=== PATIENT | female | born 1995 | race Caucasian/White ===

== ENCOUNTER 2019-07-24 05:55 | Inpatient (IN) | payer OTHER ==
[2019-07-24] MEDS ORDERED: CARBOPROST TROMETHAMINE 250 MCG/ML 1 ML AMP IM PRN (06:06)
[2019-07-24] MEDS ORDERED: LIDOCAINE 0.5% (PF) 5 MG/ML (50 ML SDV) SQ PRN (06:06)
[2019-07-24] MEDS ORDERED: METHYLERGONOVINE 0.2 MG/ML 1 ML AMP IM PRN (06:06)
[2019-07-24] MEDS ORDERED: OXYTOCIN 10 UNIT/ML 1 ML VIAL IM PRN (06:06)
[2019-07-24] MEDS ORDERED: TERBUTALINE 1 MG/ML VIAL SQ PRN (06:06)
[2019-07-24] MEDS: LACTATED RINGERS 1,000 ML IV SCH ×4 (06:20→23:44)
[2019-07-24 06:31] LABS: Basophils % (A) 0 %; Eosinophils # (A) 0.1 k/uL (0-0.7); Eosinophils % (A) 1 %; HCT 37.3 % (34.0-46.0); HGB 12.8 gm/dL (11.4-16.0); Lymphocytes # (A) 1.6 k/uL (1.0-4.8); Lymphocytes % (A) 20 %; MCH 32.7 pg (25.0-35.0); MCHC 34.2 g/dL (31.0-37.0); MCV 95.6 fL (80.0-100.0); Mean Platelet Volume 8.4; Monocytes # (A) 0.5 k/uL (0-1.0); Monocytes % (A) 6 %; Neutrophils # (A) 5.5 k/uL (1.3-7.7); Neutrophils % (A) 70 %; Platelet Count 214 k/uL (150-450); RDW 13.2 % (11.5-15.5); WBC 7.9 k/uL (3.8-10.6)
[2019-07-24] MEDS: OXYTOCIN 30 UNITS/500 ML NS 30 UNIT in SALINE 1 500ML.BAG IV SCH (06:50)
[2019-07-24] MEDS ORDERED: CITRIC ACID-SODIUM CITRATE 15 ML CUP PO ONE (17:22)
[2019-07-24] MEDS ORDERED: OXYTOCIN 10 UNIT/ML 1 ML VIAL ONE (18:04)
[2019-07-24] MEDS ORDERED: NALBUPHINE 10 MG/ML (1 ML AMP) ONE (18:04)
[2019-07-24] MEDS ORDERED: ONDANSETRON 4 MG/2 ML VIAL ONE (18:04)
[2019-07-24] MEDS ORDERED: MORPHINE SULFATE (PF) 0.3 MG/0.3 ML SYR ONE (18:04)
[2019-07-24] MEDS ORDERED: KETOROLAC 30 MG/ML 1 ML VIAL ONE (18:04)
[2019-07-24] MEDS ORDERED: ONDANSETRON 4 MG/2 ML VIAL IVP PRN (18:50)
[2019-07-24] MEDS ORDERED: METOCLOPRAMIDE 5 MG/ML 2 ML VIAL IVP PRN (18:50)
[2019-07-24] MEDS ORDERED: ACETAMINOPHEN IV (For NPO) 1,000 MG in EMPTY BAG 1 BAG IVPB ONE (18:50)
[2019-07-24] MEDS ORDERED: diphenhydrAMINE 50 MG CAP PO PRN (18:50)
[2019-07-24] MEDS ORDERED: HYDROcodone/APAP 5-325MG 1 EACH TAB PO PRN (18:50)
[2019-07-24] MEDS ORDERED: diphenhydrAMINE 50 MG/ML 1 ML VIAL IVP PRN ×2 (18:50)
[2019-07-24] MEDS ORDERED: diphenhydrAMINE 25 MG CAP PO PRN (18:50)
[2019-07-24] MEDS ORDERED: NALOXONE 0.4 MG/ML 1 ML VIAL IV PRN (18:50)
[2019-07-24] MEDS ORDERED: ZOLPIDEM 5 MG TAB PO PRN (18:50)
--- NOTE | 2019-07-24 18:50 | P.HPOB ---
History of Present Illness H&P Date: 07/24/19 Chief Complaint: IUP at 38 and 4/sevenths weeks, LGA, h/o VAVD, and brachial plexus injury This is a pleasant 24-year-old 2 para 1001 at 38-4/7 weeks that presents to labor and delivery for induction of labor secondary to LGA, ultrasound done yesterday revealing weight of 9 lbs. 9 oz. greater than the 90 percentile. Patient has a history of a LGA 9 lbs. 11 oz. with her prior delivery which necessitated a vacuum-assisted vaginal delivery for field tachycardia at the time of delivery, and subsequent shoulder dystocia. Infant did sustain a brachial plexus injury which was noted to resolve over time. Patient is very concerned about weight therefore we are inducing early given this ultrasound finding of LGA. Patient has had routine care with myself and it has been uncomplicated. Given her history we have watched growth closely. On this date she notes good movement she denies vaginal bleeding or loss of fluid. On blood work she has a blood type of O+, rubella immune, hepatitis B surface antigen negative, HIV negative, RPR nonreactive, GBS negative. Review of Systems Constitutional: Denies chills, Denies fatigue, Denies fever Ears, nose, mouth and throat: Denies headache Cardiovascular: Reports leg edema Respiratory: Denies dyspnea Gastrointestinal: Denies nausea, Denies vomiting Genitourinary: Reports Past Medical History Past Medical History: No Reported History History of Any Multi-Drug Resistant Organisms: None Reported Past Surgical History: Adenoidectomy, Tonsillectomy Past Anesthesia/Blood Transfusion Reactions: No Reported Reaction Past Psychological History: No Psychological Hx Reported Smoking Status: Never smoker Past Alcohol Use History: None Reported Past Drug Use History: None Reported - Past Family History Mother Family Medical History: No Reported History Medications and Allergies Home Medications Medication Instructions Recorded Confirmed Type Pnv No.95/Ferrous Fum/Folic AC 1 tab PO DAILY 07/24/19 07/24/19 History [ Multivitamin Tablet] Allergies Allergy/AdvReac Type Severity Reaction Status Date / Time No Known Allergies Allergy Verified 07/24/19 06:05 Exam Osteopathic Statement: *. No significant issues noted on an osteopathic structural exam other than those noted in the History and Physical/Consult. Vital Signs Temp Pulse Resp BP Pulse Ox 07/24/19 06:04 98.3 F 107 H 16 130/73 98 Intake and Output 07/23/19 07/24/19 07/24/19 22:59 06:59 14:59 Other: Weight 83.915 kg Targeted physical exam is performed on this date in general this is a well- nourished well-developed female in no acute distress, breathing is noted to be nonlabored heart has a regular rate and rhythm her abdomen is gravid, on physical exam her cervix is noted to be 1-2/50/-3 amniotomy is performed and clear fluid was obtained. heart tones noted to be category 1 and she is marcial irregularly. Results Result Diagrams: 07/24/19 06:17 Assessment and Plan (1) Term Current Visit: Yes Status: Acute Code(s): Z34.90 - ENCNTR FOR SUPRVSN OF NORMAL , UNSP, UNSP TRIMESTER SNOMED Code(s): 55062808 (2) H/O delivery by vacuum extraction, currently Current Visit: Yes Status: Acute Code(s): O09.299 - SUPRVSN OF PREG W POOR REPRODCTV OR OBSTET HISTORY, UNSP TRI SNOMED Code(s): 584974515 (3) LGA (large for gestational age) fetus Current Visit: Yes Status: Acute Code(s): LPG1020 - SNOMED Code(s): 020814929 Plan: Given this patient's history of vacuum assist vaginal delivery with shoulder dystocia, and subsequent brachial plexus injury of her infant decision was made to proceed with induction today. Patient was counseled on reason for induction and she was well aware that given size we will be watching closely and any deviation from the labor curve we will recommend primary . Patient w ishes to avoid adamantly. Patient does desire epidural at some point during labor process therefore anesthesia will be notified, we'll monitor this patient closely for progress in hopes for vaginal delivery.
[2019-07-24] MEDS ORDERED: IBUPROFEN IV 800 MG in SODIUM CHLORIDE 0.9% 250 ML IV ONE (18:52)
[2019-07-24] MEDS ORDERED: OXYTOCIN 20 UNITS/1000 ML NS 1,000 ML IV SCH (19:00)
--- NOTE | 2019-07-24 19:00 | P.OP ---
Date of Procedure: 07/24/19 Preoperative Diagnosis: IUP @ 38 4/7 weeks, arrest of descent, h/o LGA, shoulder dystocia with brachial plexus injury Postoperative Diagnosis: same Procedure(s) Performed: Primary low transverse section Anesthesia: spinal Surgeon: Charlee Smith [employer]er #1: Henry Pitt Estimated Blood Loss (ml): 600 IV fluids (ml): 1,000 Urine output (ml): 200 Pathology: none sent Condition: stable Disposition: PACU Indications for Procedure: This pleasant 24-year-old 2 para 1001 at 38-4/7 weeks presents for induction of labor secondary to history of LGA, shoulder dystocia with regular plexus injury. Ultrasound done yesterday revealing an infant of 9 lbs. 9 oz. prior infant 911. Patient made minimal progress throughout the day this morning at 8:30 she was noted to be 1-2 cm by 5 PM she had only dilated to 3 cm and the was still high in the pelvis. Given her prior history was discussed with the patient a primary given lack of cervical change, and lack of descent into the pelvis. Patient stated understanding and consented for primary . Operative Findings: Normal uterus tubes and ovaries were appreciated female delivered at 1823, weight of 9 lbs. 3 oz. with Apgars of 9 and 9 at one and 5 minutes respectively Description of Procedure: Patient was taken back to the operating suite where spinal anesthesia was found be adequate by the anesthesia . She was prepped and draped in normal sterile fashion in the dorsal supine position. A Pfannenstiel skin incision was made with the scalpel and carried through to the underlying layer of fascia. The fascia was then incised in the midline and extended laterally. The superior aspect the fascial incision was then grasped the Mckenzie clamps, elevated and underlying rectus muscles dissected off sharply. It was then turned the patient's inferior aspect of the fascial incision which was grasped mckenzie clamps, elevated and underlying rectus muscles dissected off sharply once again. The rectus muscles were in the midline the peritoneum was identified and entered. This incision was then extended superiorly and inferiorly with good visualization the bladder. The bladder blade was then inserted the vesicouterine peritoneum was identified and the bladder flap was created using sharp and blunt dissection. Hysterotomy incision was then made to enter the uterus the infant's head was encountered and the infant was delivered atraumatically and the umbilical cord was doubly clamped and cut. the placenta was delivered manually and the Uterus was then delivered from the abdomen and cleared of all clots and debris. The hysterotomy incision was closed with 0 Vicryl in a running locked fashion 2. Small amount of bleeding was noted in the midportion of the hysterotomy incision therefore a [id number] suture was used to obtain hemostasis. On inspection of the hysterotomy incision hemostasis was appreciated and the uterus was returned to the abdomen. The gutters were cleared of all clots and debris. Once again the hysterotomy incision was inspected and hemostasis was appreciated. The fascial incision was closed 0 Vicryl in a running fashion from one lateral edge the other. The subcu tissue was irrigated and reapproximated with 3-0 Vicryl. The skin was then closed with 4-0 Vicryl in a subarticular fashion. Steri-Strips and sterile dressings were applied as needed. All counts were correct 2 patient tolerated procedure well
[2019-07-24 19:25] VITALS: RESP 16
[2019-07-24] MEDS: SENNOSIDES-DOCUSATE SODIUM 1 EACH TAB PO SCH (19:52)
--- NOTE | 2019-07-25 07:08 | P.PN ---
Progress Note - Text 07/25 636am 24-year-old female status post with a spinal anesthetic with Duramorph. Patient seen and evaluated for postop pain control this morning, patient has a VAS of 0, she has complains of pruritus which is getting better. Patient to follow-up with OB doctor for oral pain medication
--- NOTE | 2019-07-25 08:07 | P.PNOBGPC ---
Subjective - Subjective Principal diagnosis: POD 1 LTCS Interval history: Patient did well overnight. She states her pain is controlled. She is ambulating without difficulty. Toth was removed at 4 AM and we are awaiting spontaneous void. No nausea or vomiting tolerating clear liquids desirous of a regular diet. Patient reports: Reports appetite normal, Reports pain well controlled, Reports ambulating normally [place]: doing well, nursing well Objective - Vital Signs Latest vital signs: Vital Signs Temp Pulse Resp BP Pulse Ox 07/25/19 04:00 98.3 F 80 16 95/61 98 07/25/19 00:00 96.9 F L 87 16 95/57 98 07/24/19 20:57 96.3 F L 76 16 101/63 97 07/24/19 20:27 83 16 103/64 99 07/24/19 19:57 81 16 93/56 98 07/24/19 19:42 98.1 F 73 16 96/57 97 07/24/19 19:06 78 16 105/53 98 07/24/19 18:50 96.9 F L 82 18 105/58 98 Intake and Output 07/24/19 07/25/19 07/25/19 22:59 06:59 14:59 Output Total 600 400 Balance -600 -400 Output: Urine 600 400 Uretheral (Toth) 250 Other: Voiding Method Indwelling Catheter - Exam Extremities: Present: normal, edema Abdomen: Present: normal appearance, soft Incision: Present: normal, dry, intact Uterus: Present: normal, firm Assessment and Plan (1) Term Current Visit: Yes Status: Acute Code(s): Z34.90 - ENCNTR FOR SUPRVSN OF NORMAL , UNSP, UNSP TRIMESTER SNOMED Code(s): 12007073 (2) H/O delivery by vacuum extraction, currently Current Visit: Yes Status: Acute Code(s): O09.299 - SUPRVSN OF PREG W POOR REPRODCTV OR OBSTET HISTORY, UNSP TRI SNOMED Code(s): 807836923 (3) LGA (large for gestational age) fetus Current Visit: Yes Status: Acute Code(s): DGL6542 - SNOMED Code(s): 555788754 (4) S/P section Current Visit: Yes Status: Acute Code(s): Z98.891 - HISTORY OF UTERINE SCAR FROM PREVIOUS SURGERY SNOMED Code(s): 969680006 Plan: Patient is doing well postoperatively, awaiting spontaneous void. We'll advance diet to regular. Plan continue postoperative care. Anticipate discharge home tomorrow.
[2019-07-25 08:16] LABS: Basophils % (A) 0 %; Eosinophils # (A) 0.1 k/uL (0-0.7); Eosinophils % (A) 1 %; HCT 29.8 % (34.0-46.0); HGB 10.1 gm/dL (11.4-16.0); Lymphocytes # (A) 1.8 k/uL (1.0-4.8); Lymphocytes % (A) 18 %; MCH 32.9 pg (25.0-35.0); MCHC 33.9 g/dL (31.0-37.0); MCV 96.9 fL (80.0-100.0); Mean Platelet Volume 8.8; Monocytes # (A) 0.8 k/uL (0-1.0); Monocytes % (A) 8 %; Neutrophils # (A) 7.3 k/uL (1.3-7.7); Neutrophils % (A) 72 %; Platelet Count 226 k/uL (150-450); RBC 3.07 m/uL (3.80-5.40); RDW 13.4 % (11.5-15.5); WBC 10.1 k/uL (3.8-10.6)
[2019-07-25] MEDS ORDERED: PRENATAL VIT-IRON-FOLIC ACID 1 EACH CAP PO SCH (09:00)
[2019-07-25] MEDS: SENNOSIDES-DOCUSATE SODIUM 1 EACH TAB PO SCH ×2 (09:53→20:19)
[2019-07-25] MEDS: IBUPROFEN 600 MG TAB PO PRN ×2 (12:06→18:02)
[2019-07-25] MEDS: ACETAMINOPHEN TAB 325 MG TAB PO PRN (20:19)
[2019-07-25] MEDS: LACTATED RINGERS 1,000 ML IV SCH ×3 (21:41→21:46)
[2019-07-25] MEDS: OXYTOCIN 30 UNITS/500 ML NS 30 UNIT in SALINE 1 500ML.BAG IV SCH (21:47)
[2019-07-25] MEDS: SIMETHICONE 80 MG CHEWABLE PO PRN (22:33)
[2019-07-26] MEDS: IBUPROFEN 600 MG TAB PO PRN ×2 (00:46→06:32)
[2019-07-26] MEDS: SENNOSIDES-DOCUSATE SODIUM 1 EACH TAB PO SCH (07:51)
[2019-07-26] MEDS: SIMETHICONE 80 MG CHEWABLE PO PRN (07:51)
[2019-07-26] MEDS: ACETAMINOPHEN TAB 325 MG TAB PO PRN (07:52)
[2019-07-26 08:47] VITALS: BP 99/70; PULSE 91; TEMP 98.3
--- NOTE | 2019-07-26 09:01 | P.DS ---
Providers Date of admission: 07/24/19 05:55 Expected date of discharge: 07/26/19 Attending physician: Charlee Smith Primary care physician: Stated None - Discharge Diagnosis(es) (1) Term Current Visit: Yes Status: Acute (2) H/O delivery by vacuum extraction, currently Current Visit: Yes Status: Acute (3) LGA (large for gestational age) fetus Current Visit: Yes Status: Acute (4) S/P section Current Visit: Yes Status: Acute Hospital Course: this is a pleasant 24-year-old 2 para 1001 that presented to labor and delivery at 38-4/7 weeks for induction of labor secondary history of LGA, 9-11 # with susequent shoulder dystocia with brachial plexus injury. Ultrasound done the day prior revealed a 9-9 estimated weight. Patient was admitted to labor and delivery and Pitocin was started per hospital protocol. Patient was noted to be 1-2 cm on admission. Amniotomy was performed once regular contractions were noted. Clear fluid was obtained on amniotomy. Patient made minimal progress through labor and a proximally 10 hours later was noted to be 3 cm. Patient was given the option of primary versus continuing on. Given her prior history of shoulder dystocia and brachial plexus injury she opted for primary . was completed without difficulty for further details on the please see the operative report. Patient delivered a 9 lbs. 3 oz. girl with Apgars of 9 and 9 at one and 5 minutes respectively. patient's postoperative course has been uneventful. On this postop day #2 she is ambulating and voiding without difficulty. Her pain is well-controlled with Motrin/Tylenol. She is breast-feeding without difficulty. Her lochia is minimal. She is complaining of some gas distention, and is using simethicone and senna S. girl is doing well and should be discharged today as well. Patient Condition at Discharge: Good Plan - Discharge Summary New Discharge Prescriptions: No Action Pnv No.95/Ferrous Fum/Folic AC [ Multivitamin Tablet] 1 tab PO DAILY Discharge Medication List Pnv No.95/Ferrous Fum/Folic AC [ Multivitamin Tablet] 1 tab PO DAILY 07/24/19 [History] Follow up Appointment(s)/Referral(s): Charlee Simth DO [Doctor of Osteopathic Medicine] - 2 Weeks Patient Instructions/Handouts: (DC), (GEN) Activity/Diet/Wound Care/Special Instructions: patient is to alternate Motrin 600 [id number] every 6 hours with Tylenol. She is also to use simethicone as needed, and is encouraged to use senna S, 2 pills at bedtime in addition. Discharge Disposition: HOME SELF-CARE
== END 2019-07-26 11:07 | disposition home or self-care (01) | DRG 788 ==
LOC: 4FBP 05:55
PROVIDERS: ADMIT Obstetrics & Gynecology Obstetrics; ATTEND Obstetrics & Gynecology Obstetrics
PROC: 10907ZC Drainage of Amniotic Fluid, Therapeutic from Products of Conception, Via Natural or Artificial Opening (ICD-10-PCS; principal; 2019-07-24 18:15)
PROC: 3E033VJ Introduction of Other Hormone into Peripheral Vein, Percutaneous Approach (ICD-10-PCS; principal; 2019-07-24 18:15)
PROC: 10D00Z1 Extraction of Products of Conception, Low, Open Approach (ICD-10-PCS; principal; 2019-07-24 18:15)
DX: O36.63X0 Maternal care for excessive fetal growth, third trimester, not applicable or unspecified (principal); Z37.0 Single live birth; Z3A.38 38 weeks gestation of pregnancy; O32.4XX0 Maternal care for high head at term, not applicable or unspecified
CPT/HCPCS: 85025; 86850; 86900; 86901

== ENCOUNTER 2021-08-11 11:52 | Emergency (ER) | payer OTHER ==
--- NOTE | 2021-08-11 12:52 | ED ---
General Adult HPI - General Source: patient, RN notes reviewed Mode of arrival: ambulatory Limitations: no limitations <Belle Sommer - Last Filed: 08/11/21 23:27> <Emily Figueroa - Last Filed: 08/13/21 22:40> - General Chief complaint: Upper Respiratory Infection Stated complaint: wants bam infusion Time Seen by Provider: 08/11/21 12:12 - History of Present Illness Initial comments: 26-year-old female presents to the emergency department requesting a monoclonal antibody infusion. Patient states she is 14 weeks and tested positive for Covid today. States symptoms began on Mukesh. Reports sinus congestion, head pressure, and fatigue. Is tolerating oral intake without difficulty. States she spoke with her WEB CONSULTANT who instructed her to come to the ER. Denies fever, chills, chest pain, shortness of breath, abdominal pain, constipation, diarrhea, dysuria, or hematuria. (Belle Sommer) - Related Data Home Medications Medication Instructions Recorded Confirmed Pnv No.95/Ferrous Fum/Folic AC 1 tab PO DAILY 07/24/19 07/24/19 [ Multivitamin Tablet] Allergies Allergy/AdvReac Type Severity Reaction Status Date / Time No Known Allergies Allergy Verified 07/24/19 06:05 Review of Systems ROS Other: All systems not noted in ROS Statement are negative. <Belle Sommer - Last Filed: 08/11/21 23:27> ROS Other: All systems not noted in ROS Statement are negative. <Emily Figueroa - Last Filed: 08/13/21 22:40> ROS Statement: Those systems with pertinent positive or pertinent negative responses have been documented in the HPI. Past Medical History Past Medical History: No Reported History History of Any Multi-Drug Resistant Organisms: None Reported Past Surgical History: Adenoidectomy, Tonsillectomy Past Anesthesia/Blood Transfusion Reactions: No Reported Reaction Past Psychological History: No Psychological Hx Reported Past Alcohol Use History: None Reported Past Drug Use History: None Reported - Past Family History Mother Family Medical History: No Reported History <Belle Sommer - Last Filed: 08/11/21 23:27> General Exam Limitations: no limitations (Well-developed, well-nourished female in no acute distress. Initial temperature 98.2, pulse 85, respirations 16, blood pressure 114/72, pulse ox 97% on room air.) General appearance: alert, in no apparent distress ENT exam: Present: normal exam, normal oropharynx, mucous membranes moist Respiratory exam: Present: normal lung sounds bilaterally. Absent: respiratory distress, wheezes, rales, rhonchi, stridor Cardiovascular Exam: Present: regular rate, normal rhythm, normal heart sounds. Absent: systolic murmur, diastolic murmur, rubs, gallop, clicks GI/Abdominal exam: Present: soft, normal bowel sounds. Absent: distended, tenderness, guarding, rebound, rigid Neurological exam: Present: alert, oriented X3, CN II-XII intact Psychiatric exam: Present: normal affect, normal mood Skin exam: Present: warm, dry, intact, normal color. Absent: rash <Belle Sommer - Last Filed: 08/11/21 23:27> Course Vital Signs 08/11/21 08/11/21 08/11/21 11:57 12:04 13:59 Temperature 98.2 F Pulse Rate 85 86 Respiratory 16 16 18 Rate Blood Pressure 114/72 100/63 O2 Sat by Pulse 97 97 Oximetry 08/11/21 15:20 Temperature 98 F Pulse Rate 83 Respiratory 16 Rate Blood Pressure 95/52 O2 Sat by Pulse 98 Oximetry Medical Decision Making <Belle Sommer - Last Filed: 08/11/21 23:27> <Emily Figueroa - Last Filed: 08/13/21 22:40> - Medical Decision Making 26-year-old female presents to the emergency department requesting the monoclonal antibody infusion. Patient tested positive for Covid today and provides appropriate documentation. Physical exam findings are negative. Patient is afebrile, not tachycardic, nor tachypneic. Room air saturation 97% or greater. Patient meets criteria for monoclonal antibody infusion based on status. Risks and benefits of infusion were discussed. Patient verbalizes understanding and is agreeable. Medication was infused at a slower rate due to a brief episode of chest heaviness and shortness of breath with initiation of infusion. Patient was observed for 10 minutes with physician at bedside and symptoms resolved entirely. Patient tolerated remainder of infusion without difficulty or adverse side effect. Patient will be discharged home to follow up with her WEB CONSULTANT. Return parameters were discussed in detail. Patient verbalizes understanding and agrees with this plan. This patient's care was discussed with my attending Dr. Figueroa. (Belle Sommer) I was available for consultation in the emergency department. The history and physical exam were done by the midlevel provider. I was consulted for this patients care. I reviewed the case with the midlevel provider and based on their presentation of the patient, I agree with the assessment, medical decision making and plan of care as documented. I was at patient's bedside after she had shortness of breath during infusion. Patient does not have any oral swelling, wheeze, vomiting, hives. Patient willing to try infusion again at a slower rate. Patient tolerates infusion well. Chart was dictated using [employer] dictation software. Attempts were made to correct any dictation errors however some typographical errors may persist. Patient was seen during a national state of emergency due to the Covid-19 pandemic. (Emily Figueroa) Disposition Is patient prescribed a controlled substance at d/c from ED?: No <Belle Sommer - Last Filed: 08/11/21 23:27> <Emily Figueroa - Last Filed: 08/13/21 22:40> Clinical Impression: COVID-19 Disposition: HOME SELF-CARE Condition: Stable Instructions (If sedation given, give patient instructions): Coronavirus Disease 2019 (COVID-19) Additional Instructions: Follow-up with your WEB CONSULTANT as scheduled. Continue taking medications as directed by your WEB CONSULTANT. You should stay home for five days, or longer if symptoms persist. Increase your intake of fluids. Return to the emergency department with any new, worsening, or concerning symptoms. Referrals: None,Stated [Primary Care Provider] - 1-2 days
[2021-08-11] MEDS ORDERED: BAMLANIVIMAB (EUA) 700 MG, ETESEVIMAB (EUA) 1,400 MG in SODIUM CHLORIDE 0.9% 100 ML IVPB ONE (13:00)
[2021-08-11] MEDS ORDERED: SODIUM CHLORIDE 0.9% 50 ML IVPB ONE (13:00)
[2021-08-11 15:21] VITALS: BP 95/52; PULSE 83; RESP 16; TEMP 98
== END 2021-08-11 15:20 | disposition home or self-care (01) ==
LOC: EC 11:52
DX: O98.512 Other viral diseases complicating pregnancy, second trimester (principal); U07.1 COVID-19; Z3A.14 14 weeks gestation of pregnancy
CPT/HCPCS: 99283; J3490

== ENCOUNTER 2022-02-01 06:00 | Inpatient (IN) | payer OTHER ==
[2022-02-01] MEDS: LACTATED RINGERS 1,000 ML IV SCH ×2 (13:00→18:24)
[2022-02-01] MEDS ORDERED: CITRIC ACID-SODIUM CITRATE 15 ML CUP PO ONE (13:10)
[2022-02-01 14:27] LABS: Basophils % (A) 1 %; Eosinophils # (A) 0.1 k/uL (0-0.7); Eosinophils % (A) 1 %; HCT 32.8 % (34.0-46.0); HGB 11.2 gm/dL (11.4-16.0); Lymphocytes # (A) 1.7 k/uL (1.0-4.8); Lymphocytes % (A) 17 %; MCH 31.7 pg (25.0-35.0); MCV 93.3 fL (80.0-100.0); Mean Platelet Volume 8.5; Monocytes # (A) 0.7 k/uL (0-1.0); Monocytes % (A) 7 %; Neutrophils % (A) 73 %; Platelet Count 250 k/uL (150-450); RBC 3.51 m/uL (3.80-5.40); WBC 9.6 k/uL (3.8-10.6)
[2022-02-01] MEDS ORDERED: diphenhydrAMINE 50 MG/ML 1 ML VIAL IVP PRN ×2 (17:48)
[2022-02-01] MEDS ORDERED: ONDANSETRON 4 MG/2 ML VIAL IVP PRN (17:48)
[2022-02-01] MEDS ORDERED: NALOXONE 0.4 MG/ML 1 ML VIAL IV PRN ×2 (17:48→18:16)
[2022-02-01] MEDS ORDERED: SIMETHICONE 80 MG CHEWABLE PO PRN (17:48)
[2022-02-01] MEDS ORDERED: ZOLPIDEM 5 MG TAB PO PRN (17:48)
[2022-02-01] MEDS ORDERED: METOCLOPRAMIDE 5 MG/ML 2 ML VIAL IVP PRN (17:48)
[2022-02-01] MEDS ORDERED: diphenhydrAMINE 50 MG CAP PO PRN (17:48)
[2022-02-01] MEDS ORDERED: diphenhydrAMINE 25 MG CAP PO PRN (17:48)
--- NOTE | 2022-02-01 17:55 | P.OP ---
Date of Procedure: 02/01/22 Preoperative Diagnosis: IUP at 38 and 6, history of , oligohydramnios, desires repeat, family status complete Postoperative Diagnosis: Same Procedure(s) Performed: Repeat section with tubal ligation Anesthesia: spinal Surgeon: Charlee Smith [employer] Worker #1: Tom Brooke Estimated Blood Loss (ml): 466 IV fluids (ml): 900 Urine output (ml): 80 Pathology: none sent Condition: stable Disposition: observation Indications for Procedure: 27-year-old that presents to labor and delivery at 38-6/7 weeks. Patient presented visit for evaluation of amniotic fluid index. Lluvia ent had noted YUNG of 7 last week, reassuring testing in the office. Patient presents today for estimated weight and YUNG. YUNG was noted to decrease to 5. Estimated weight 9 pounds. Patient notes good movement denies loss of fluid or vaginal bleeding. She does note an occasional contraction. Patient has been receiving routine care which has been essentially uncomplicated. Patient has a known blood type of O+, rubella status immune, B surface antigen negative, RPR is nonreactive, group beta strep cultures negative. Operative Findings: Viable female delivered at 1722, weight of 10 lbs. 5 oz., Apgars of 9 and 9 at one and 5 minutes respectively. The lower uterine segment is appreciated, normal uterus and ovaries are appreciated bilaterally. Description of Procedure: Patient was taken back to the operating suite where spinal anesthesia was found be adequate by the anesthesia department. She was prepped and draped in normal sterile fashion in the dorsal supine position. A Pfannenstiel skin incision was made with the scalpel and carried through the underlying layer of fascia. Fascia was incised in the midline and extended laterally. The superior aspect of the fascial incision was then grasped luh clamps, elevated and underlying rectus muscles dissected off sharply. Attention then turned the inferior aspect of the fascial incision which was grasped luh clamps, elevated and underlying rectus muscles dissected off sharply once again. Thick scar tissue was appreciated. The rectus muscles were in the midline the peritoneum was identified and entered. The incision was then extended superior really and inferiorly with good visualization the bladder. The bladder blade was then inserted into the pelvis the vesicouterine peritoneum was identified and a bladder flap was created using sharp and blunt dissection. Starting incision was made the scalpel and extended laterally. Amniotic fluid was appreciated to be clear. The head was encountered and the fetus was delivered in the usual fashion. The umbilical cord was doubly clamped and cut and the infant was handed off to awaiting RN. Spontaneous cry was noted at . The placenta was then delivered manually intact with a three-vessel cord being noted. Uterus then delivered from the abdomen and the uterine incision was closed 0 Vicryl in a running locked fashion. Hemostasis was appreciated. The gutters were cleared of all clots and debris. The left fallopian tube was visualized clamped with Filshie clip without difficulty. This was then repeated on the opposite side. The gutters were then cleared of all clots and debris and the uterus was returned to the abdomen. The hysterotomy incision was inspected and found to be hemostatic. The rectus muscles were inspected and any points of bleeding were made hemostatic with the Bovie. The peritoneum was then loosely reapproximated. The fascia was then closed 0 Vicryl in a running fashion from one lateral edge to the other. The subcutaneous tissue was irrigated found to be hemostatic and closed with 3-0 Vicryl in a running fashion. The skin was then closed with 4-0 Vicryl in a subcuticular fashion. Suture strips and sterile dressings were applied. All counts were noted be correct 2 at the end of the delivery. Patient and infant tolerated delivery well and are resting comfortably.
--- NOTE | 2022-02-01 17:56 | P.HPOB ---
History of Present Illness H&P Date: 02/01/22 Chief Complaint: IUP at 38 and 6/sevenths weeks, oligohydramnios, history of C- section This is a 27-year-old 003 at 38-6/7 weeks that presents to labor and delivery for scheduled repeat section secondary to a diagnosis of oligohydramnios noted today. Patient has been receiving routine care which has been without complication. Patient does note good movement denies contractions. Patient denies any loss of fluid. Ultrasound performed last week revealed an amniotic fluid and the sub-7, decreasing fluid index was noted today to 5. Patient is counseled on diagnosis of oligohydramnios and understands need for delivery today. On bloodwork this patient has a blood type of O+, rubella status immune, hepatitis B surface antigen negative, HIV negative, RPR is nonreactive, group beta strep cultures negative. Review of Systems Constitutional: Denies chills, Denies fatigue, Denies fever Ears, nose, mouth and throat: Denies headache Cardiovascular: Reports leg edema Gastrointestinal: Denies constipation, Denies diarrhea, Denies nausea, Denies vomiting Genitourinary: Reports Past Medical History Past Medical History: No Reported History History of Any Multi-Drug Resistant Organisms: None Reported Past Surgical History: Adenoidectomy, Tonsillectomy Past Anesthesia/Blood Transfusion Reactions: No Reported Reaction Past Psychological History: No Psychological Hx Reported Past Alcohol Use History: None Reported Past Drug Use History: None Reported - Past Family History Mother Family Medical History: No Reported History Medications and Allergies Home Medications Medication Instructions Recorded Confirmed Type Pnv No.95/Ferrous Fum/Folic AC 1 tab PO DAILY 07/24/19 07/24/19 History [ Multivitamin Tablet] Allergies Allergy/AdvReac Type Severity Reaction Status Date / Time No Known Allergies Allergy Verified 07/24/19 06:05 Exam Osteopathic Statement: *. No significant issues noted on an osteopathic structural exam other than those noted in the History and Physical/Consult. 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 Cervical exam is deferred. Results Result Diagrams: 02/01/22 13:50 Assessment and Plan (1) H/O section Current Visit: Yes Status: Acute Code(s): Z98.891 - HISTORY OF UTERINE SCAR FROM PREVIOUS SURGERY SNOMED Code(s): 728653382 (2) H/O delivery by vacuum extraction, currently Current Visit: No Status: Acute Code(s): O09.299 - SUPRVSN OF PREG W POOR REPRODCTV OR OBSTET HISTORY, UNSP TRI SNOMED Code(s): 767974495 (3) LGA (large for gestational age) fetus Current Visit: No Status: Acute Code(s): [id number] - SNOMED Code(s): 956867337 (4) Term Current Visit: No Status: Acute Code(s): Z34.90 - ENCNTR FOR SUPRVSN OF NORMAL , UNSP, UNSP TRIMESTER SNOMED Code(s): 59801837 Plan: 27-year-old 003 at 38-6/7 weeks that presents to labor and delivery for repeat section given diagnosis of oligohydramnios. Patient does have a history of a vacuum assist vaginal delivery with a brachial plexus injury therefore her last child was delivered by as well. Patient is counseled on a repeat section and risks are reviewed. Patient states understanding and wishes to proceed.
[2022-02-01] MEDS ORDERED: OXYTOCIN 30 UNITS/500 ML NS 30 UNIT in SALINE 1 500ML.BAG IV SCH (18:00)
[2022-02-01] MEDS ORDERED: HYDROmorphone 0.5 MG/0.5 ML SYRINGE IVP PRN (18:16)
[2022-02-01] MEDS ORDERED: KETOROLAC 15 MG/ML 1 ML VIAL IVP PRN (18:16)
[2022-02-01] MEDS: ACETAMINOPHEN IV (For NPO) 1,000 MG in EMPTY BAG 1 BAG IVPB SCH (20:12)
[2022-02-01] MEDS: SENNOSIDES-DOCUSATE SODIUM 1 EACH TAB PO SCH (20:13)
[2022-02-02] MEDS: ACETAMINOPHEN TAB 500 MG TAB PO SCH ×5 (02:47→21:13)
[2022-02-02] MEDS: IBUPROFEN 600 MG TAB PO SCH ×4 (03:46→18:09)
[2022-02-02] MEDS: ACETAMINOPHEN IV (For NPO) 1,000 MG in EMPTY BAG 1 BAG IVPB SCH (03:46)
[2022-02-02] MEDS: IBUPROFEN IV 800 MG in SODIUM CHLORIDE 0.9% 250 ML IV SCH (03:46)
--- NOTE | 2022-02-02 06:35 | P.PN ---
Progress Note - Text Progress Note Date: 02/02/22 Postoperative day 1 status post section under spinal anesthesia, and i ntrathecal morphine given for postoperative analgesia, patient doing well, there is no anesthesia related complications, Patient had no headache, vital signs stable , Assessment and plan= postop day 1 status post , doing well there is no anesthesia related complication.
--- NOTE | 2022-02-02 07:02 | P.PNOBGPC ---
Subjective - Subjective Principal diagnosis: Postop day 1, repeat section with tubal ligation Interval history: Patient is doing well postoperatively. She is a bleeding without difficulty, awaiting spontaneous void. Toth was discontinued at 3 AM. Patient states her lochia is minimal. She is breast-feeding without difficulty. She states her pain is well-controlled. Patient reports: Reports appetite normal, Reports pain well controlled, Reports ambulating normally : doing well, nursing well Objective - Vital Signs Latest vital signs: Vital Signs Temp Pulse Resp BP Pulse Ox 02/02/22 03:53 97.7 F 74 16 89/55 99 02/02/22 03:00 16 99 02/02/22 01:00 16 02/02/22 00:00 98.5 F 80 16 123/83 02/01/22 23:30 97.8 F 77 16 99/62 99 02/01/22 23:00 18 97 02/01/22 20:49 18 98 02/01/22 20:00 18 97 02/01/22 19:54 98.6 F 73 18 107/60 97 02/01/22 19:24 18 02/01/22 19:16 98.4 F 74 18 109/61 96 02/01/22 18:54 97.6 F 78 18 100/57 98 02/01/22 18:39 96.6 F L 74 18 108/54 98 02/01/22 18:24 95.8 F L 74 18 118/66 97 02/01/22 18:16 18 98 02/01/22 18:06 96.9 F L 89 18 112/58 98 02/01/22 17:54 97.7 F 85 18 112/55 99 02/01/22 13:50 97.7 F 109 H 18 113/63 99 Intake and Output 02/01/22 02/02/22 02/02/22 22:59 06:59 14:59 Intake Total 240 250 Output Total 636 1700 Balance -396 -1450 Intake: IV 240 250 Output: Urine 170 1700 Uretheral (Toth) 1500 Estimated Blood Loss 466 Other: Voiding Method Indwelling Catheter - Exam Extremities: Present: normal, edema Abdomen: Present: normal appearance, soft Incision: Present: normal, dry, intact Uterus: Present: normal - Labs Labs: Abnormal Lab Results - Last 24 Hours (Table) 02/01/22 Range/Units 13:50 RBC 3.51 L (3.80-5.40) m/uL Hgb 11.2 L (11.4-16.0) gm/dL Hct 32.8 L (34.0-46.0) % Assessment and Plan (1) H/O section Current Visit: Yes Status: Acute Code(s): Z98.891 - HISTORY OF UTERINE SCAR FROM PREVIOUS SURGERY SNOMED Code(s): 122942167 (2) H/O delivery by vacuum extraction, currently Current Visit: No Status: Acute Code(s): O09.299 - SUPRVSN OF PREG W POOR REPRODCTV OR OBSTET HISTORY, UNSP TRI SNOMED Code(s): 665793266 (3) LGA (large for gestational age) fetus Current Visit: No Status: Acute Code(s): [id number] - SNOMED Code(s): 735367034 (4) Term Current Visit: No Status: Acute Code(s): Z34.90 - ENCNTR FOR SUPRVSN OF NORMAL , UNSP, UNSP TRIMESTER SNOMED Code(s): 95343406 (5) S/P section Current Visit: No Status: Acute Code(s): Z98.891 - HISTORY OF UTERINE SCAR FROM PREVIOUS SURGERY SNOMED Code(s): 223396130 Plan: Patient is status post repeat section with tubal ligation. Patient is to do well postoperatively. Awaiting spontaneous void. We'll encourage increased ambulation, advance diet to regular this morning. Anticipate discharge home tomorrow.
[2022-02-02 08:18] LABS: Basophils % (A) 0 %; Eosinophils # (A) 0.1 k/uL (0-0.7); Eosinophils % (A) 1 %; HCT 31.7 % (34.0-46.0); HGB 10.5 gm/dL (11.4-16.0); Lymphocytes # (A) 1.1 k/uL (1.0-4.8); Lymphocytes % (A) 11 %; MCH 31.3 pg (25.0-35.0); MCHC 33.1 g/dL (31.0-37.0); MCV 94.7 fL (80.0-100.0); Mean Platelet Volume 8.4; Monocytes # (A) 0.6 k/uL (0-1.0); Monocytes % (A) 6 %; Neutrophils # (A) 8.4 k/uL (1.3-7.7); Neutrophils % (A) 81 %; Platelet Count 203 k/uL (150-450); RBC 3.35 m/uL (3.80-5.40); RDW 12.8 % (11.5-15.5); WBC 10.4 k/uL (3.8-10.6)
[2022-02-02] MEDS: SENNOSIDES-DOCUSATE SODIUM 1 EACH TAB PO SCH ×2 (08:44→21:17)
[2022-02-03 00:42] VITALS: PULSE 83
[2022-02-03] MEDS: IBUPROFEN 600 MG TAB PO SCH ×3 (00:46→12:00)
[2022-02-03] MEDS: IBUPROFEN IV 800 MG in SODIUM CHLORIDE 0.9% 250 ML IV SCH ×2 (00:55→00:56)
[2022-02-03] MEDS: LACTATED RINGERS 1,000 ML IV SCH (00:55)
[2022-02-03] MEDS: ACETAMINOPHEN TAB 500 MG TAB PO SCH ×2 (03:53→09:14)
--- NOTE | 2022-02-03 08:35 | P.DS ---
Providers Date of admission: 02/01/22 12:09 Expected date of discharge: 02/03/22 Attending physician: Charlee Smith Primary care physician: Stated None - Discharge Diagnosis(es) (1) H/O section Current Visit: Yes Status: Acute (2) H/O delivery by vacuum extraction, currently Current Visit: No Status: Acute (3) LGA (large for gestational age) fetus Current Visit: No Status: Acute (4) Term Current Visit: No Status: Acute (5) S/P section Current Visit: No Status: Acute Hospital Course: This is a 27-year-old 4 para 3003 that presented to labor and delivery at 38-6/7 weeks for repeat section with tubal ligation. Patient was seen in the office for routine visit with ultrasound revealing a diagnosis of oligohydramnios. 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 Patient had suspected large for gestational age infant with this in addition. Patient receiving routine care which has been essentially uncomplicated. Patient notes good movement denies vaginal bleeding or loss of fluid. On bloodwork this patient is a blood type of O+, rubella status immune, B surface antigen negative, RPR is nonreactive, group beta strep was negative Patient Condition at Discharge: Good Plan - Discharge Summary New Discharge Prescriptions: No Action Pnv No.95/Ferrous Fum/Folic AC [ Multivitamin Tablet] 1 tab PO DAILY Discharge Medication List Pnv No.95/Ferrous Fum/Folic AC [ Multivitamin Tablet] 1 tab PO DAILY 07/24/19 [History] Patient Instructions/Handouts: (DC), (GEN) Activity/Diet/Wound Care/Special Instructions: Patient expect menstrual-like bleeding/spotting post . Epss-[id number] ibuprofen as needed for pain. Motrin 600 mg every 6 hours with Tylenol in between as needed for discomfort. Patient is to follow-up in 2 weeks for routine postoperative check. Patient is to call the office with any concerns prior to this appointment. Discharge Disposition: HOME SELF-CARE
[2022-02-03] MEDS: SENNOSIDES-DOCUSATE SODIUM 1 EACH TAB PO SCH (09:14)
[2022-02-03 10:08] VITALS: BP 122/73; RESP 15; TEMP 98.4
== END 2022-02-03 13:57 | disposition home or self-care (01) | DRG 784 ==
LOC: 4FBP 12:09
PROVIDERS: ADMIT Obstetrics & Gynecology Obstetrics; ATTEND Obstetrics & Gynecology Obstetrics
PROC: 0UL70CZ Occlusion of Bilateral Fallopian Tubes with Extraluminal Device, Open Approach (ICD-10-PCS; 2022-02-01)
PROC: 10D00Z1 Extraction of Products of Conception, Low, Open Approach (ICD-10-PCS; principal; 2022-02-01 17:03)
DX: O34.211 Maternal care for low transverse scar from previous cesarean delivery (principal); O41.03X0 Oligohydramnios, third trimester, not applicable or unspecified; O36.63X0 Maternal care for excessive fetal growth, third trimester, not applicable or unspecified; Z30.2 Encounter for sterilization; Z37.0 Single live birth; Z3A.38 38 weeks gestation of pregnancy
CPT/HCPCS: 85025; 86850; 86900; 86901